=== PATIENT | female | born 1995 | race Caucasian/White ===

== ENCOUNTER 2016-05-15 14:54 | Emergency (ER) | payer OTHER, MEDICAID ==
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
[2016-05-15 22:57] VITALS: BP 129/81
== END 2016-05-15 22:00 | disposition home or self-care (01) ==
LOC: ED 14:54
DX: M54.5 Low back pain (principal); M79.1 Myalgia; V49.49XA Driver injured in collision with other motor vehicles in traffic accident, initial encounter; Y93.9 Activity, unspecified; Y92.9 Unspecified place or not applicable; Y99.9 Unspecified external cause status
CPT/HCPCS: 99283